=== PATIENT | male | born 1995 | race Caucasian/White ===

== ENCOUNTER 2016-10-07 19:08 | Emergency (ER) | payer BC ==
[2016-10-07 19:29] VITALS: BP 147/74
--- NOTE | 2016-10-07 19:49 | UC ---
Cardiac HPI - HPI Summary HPI Summary: The patient comes in today for: 1. Chest pain, cough, dizziness (imbalaned, feeling drunk, stumbly). Onset: 11 days. Palliative/provocative: nothing makes his chest pain, cough, or dizziness better or worse. Quality: Burning. Region: Center, retro-sternal, with radiation of the pain to his back. Severity: 7/10 Associated symptoms: Cough production: dark yellow. Rhinitis: None. Fevers: None. Dsypnea: Present. Hemoptysis: None. Asthma history: None Nausea: NOne. CAD risk factors: Age: None, HTN: (-), DM: (-), Smoker: (-), FmHx: (-), Previous heart disease: (-) Previous treatment: MUcinex Wheezing: None. Inhalers: He has one, but has not been using it (Proair). * - History of Current Complaint Chief Complaint: UCChestPain Stated Complaint: CHEST TIGHTNESS,DIZZY SPELLS Time Seen by Provider: 10/07/16 19:43 Hx Obtained From: Patient - Allergy/Home Medications Allergies/Adverse Reactions: Allergies Allergy/AdvReac Type Severity Reaction Status Date / Time Cefadroxil [From Duricef] Allergy Severe Rash Verified 10/07/16 19:29 PMH/Surg Hx/FS Hx/Imm Hx Previously Healthy: Yes Endocrine History Of: Denies: Diabetes, Thyroid Disease, Hyperthyroidism, Hypothyroidism, Dyslipidemia Cardiovascular History Of: Denies: Cardiac Disorders, Hypertension, Pacemaker/ICD, Myocardial Infarction , Congestive Heart Failure, Atrial Fibrillation, Deep Vein Thrombosis, Bleeding Disorders Respiratory History Of: Denies: COPD, Asthma, Bronchitis, Pneumonia, Pulmonary Embolism GI/ History Of: Denies: Gastroesophageal Reflux, Ulcer, Gastrointestinal Bleed, Gall Bladder Disease, Kidney Stones, Diverticulitis, Renal Disease, Urosepsis Neurological History Of: Denies: TIA, CVA, Dementia, Seizures, Migraine Psychological History Of: Denies: Anxiety, Depression, Bipolar Disorder, Schizophrenia, Post Traumatic Stress Disorder Cancer History Of: Denies: Lung Cancer, Colorectal Cancer, Breast Cancer, Prostate Cancer, Cervical Cancer Other History Of: Negative For: HIV, Hepatitis B, Hepatitis C, Anticoagulant Therapy - Surgical History Surgical History: None - Family History Known Family History: Positive: Hypertension Negative: Diabetes - Social History Occupation: Employed Full-time Alcohol Use: Weekly Substance Use Type: None Smoking Status (MU): Heavy Every Day Tobacco Smoker Type: Cigarettes Amount Used/How Often: 1 ppd Review of Systems Constitutional: Negative Skin: Negative Eyes: Negative ENT: Negative Respiratory: Cough Cardiovascular: Chest Pain Gastrointestinal: Negative Genitourinary: Negative All Other Systems Reviewed And Are Negative: Yes Physical Exam Triage Information Reviewed: Yes Appearance: Well-Appearing, No Pain Distress, Well-Nourished Vital Signs: Initial Vital Signs Temp 99.2 F 10/07/16 19:25 Pulse 88 10/07/16 19:25 Resp 18 10/07/16 19:25 BP 147/74 10/07/16 19:25 Pulse Ox 98 10/07/16 19:25 Vital Signs Reviewed: Yes Eyes: Positive: Conjunctiva Clear. Negative: Discharge ENT: Positive: Hearing grossly normal. Negative: Pharyngeal erythema, Nasal congestion, Nasal drainage, TM bulging, TM dull, TM red, Tonsillar swelling, Tonsillar exudate Dental: Negative: Gross Decay/Caries @, Dental Fracture @ Neck: Positive: Supple, Nontender, No Lymphadenopathy. Negative: Nuchal Rigidity Respiratory: Positive: Chest non-tender, Lungs clear, No respiratory distress, No accessory muscle use, Rhonchi. Negative: Crackles, Wheezing Cardiovascular: Positive: RRR, No Murmur Abdomen Description: Positive: Nontender, No Organomegaly, Soft. Negative: Distended, Guarding Musculoskeletal: Positive: Strength Intact, ROM Intact, No Edema Neurological: Positive: Alert, Muscle Tone Normal Psychological: Positive: Age Appropriate Behavior, Consolable Skin: Negative: rashes, breakdown Diagnostics - Laboratory Diagnostic Studies Completed/Ordered: EKG: Rate: 80. Rhythm: sinus. Ectopy: None. Acute changes: None. - Assessment/Plan Course Of Treatment: Patient was told that his symptoms appear to be related to an upper respiratory infectio. However, there are many different causes for chest pain--some benign and some life-threatening. The life-threatening causes of chest pain can present with minimal symptoms, atypical symptoms or be present with no symptoms. Because we don't have the typical tools to differentiate the life-threatening causes from the benign ones my formal recommendation has to be to go to the ER. - Clinical Impression Provider Diagnoses: chest pain. Upper respiratory infection. Discharge - Discharge Plan Condition: Stable Disposition: AGAINST MEDICAL ADVICE Patient Education Materials: Upper Respiratory Infection (ED), Acute Bronchitis (ED), Bronchospasm (ED) Referrals: Non Staff,Doctor [Primary Care Provider] - 1 Week (IF you are not going to the ER for evaluation of your chest pain, please at least reconsider if you get worse. For your upper respiratory infection, please see your primary care provider in a week. See your primary care provider as soon as you can for your chest pain.)
== END 2016-10-07 20:14 | disposition left against medical advice (07) ==
LOC: UCEAST 19:08
DX: R07.89 Other chest pain (principal); J06.9 Acute upper respiratory infection, unspecified; Z88.1 Allergy status to other antibiotic agents; F17.210 Nicotine dependence, cigarettes, uncomplicated
CPT/HCPCS: 93005; 99202; G0463

== ENCOUNTER 2017-11-22 09:18 | Emergency (ER) | payer SELFPAY ==
[2017-11-22 09:32] VITALS: BP 150/79
[2017-11-22] MEDS ORDERED: HYDROcodone/ACETAMIN 5-325 MG* 1 TAB PO ONE (09:35)
--- NOTE | 2017-11-22 09:57 | RAD ---
HISTORY: Right elbow pain, injury COMPARISONS: None VIEWS: 4, Frontal, lateral, and oblique views of the right elbow FINDINGS: BONE DENSITY: Normal. BONES: There is no displaced fracture. JOINTS: There is no arthropathy. There is no posterior supracondylar fat pad to suggest a joint effusion. ALIGNMENT: There is no dislocation. SOFT TISSUES: Unremarkable. OTHER FINDINGS: None. IMPRESSION: NO ACUTE OSSEOUS INJURY. IF SYMPTOMS PERSIST, RECOMMEND REPEAT IMAGING.
--- NOTE | 2017-11-22 10:35 | UC ---
Magdalena Bean Gabriel, scribed for Gaurav Mcdonnell MD on 11/22/17 at 0940 . Upper Extremity HPI - HPI Summary HPI Summary: This patient is a 22 year old M [place] [facility] his sister with a chief complaint of right elbow pain that began yesterday. The pt was playing basketball and went to swat the ball when he heard a pop in his elbow. The patient rates the pain 4/10 in severity. Symptoms aggravated by movement. Patient reports swelling. Patient denies shoulder pain. Pt states he cannot bend his left elbow. - History of Current Complaint Stated Complaint: ELBOW INJURY Time Seen by Provider: 11/22/17 09:29 Hx Obtained From: Patient Onset/Duration: Lasting Days - 1, Still Present Severity Initially: Moderate Severity Currently: Moderate Pain Intensity: 4 Pain Scale Used: 0-10 Numeric Location Of Pain: Is Discrete @ - R elbow Aggravating Factor(s): Movement Associated Signs And Symptoms: Positive: Swelling, Other - pain - Allergies/Home Medications Allergies/Adverse Reactions: Allergies Allergy/AdvReac Type Severity Reaction Status Date / Time cefadroxil [From Durice] Allergy Rash Verified 11/22/17 09:33 Home Medications: Home Medications Acetaminophen TAB* [Tylenol TAB*] 650 mg PO Q4H PRN 11/22/17 [History Confirmed 11/22/17] PMH/Surg Hx/FS Hx/Imm Hx Previously Healthy: Yes Other History Of: Negative For: HIV, Hepatitis B, Hepatitis C, Anticoagulant Therapy - Surgical History Surgical History: None - Family History Known Family History: Positive: Hypertension Negative: Diabetes, Renal Disease, Respiratory Disease, Seizure Disorder, Blood Disorder - Social History Occupation: Employed Full-time Lives: With Family Alcohol Use: Occasionally Substance Use Type: None Smoking Status (MU): Heavy Every Day Tobacco Smoker Type: Cigarettes Amount Used/How Often: 1 ppd Review of Systems Musculoskeletal: Edema, Other: - right elbow pain Neurological: Negative - numbness All Other Systems Reviewed And Are Negative: Yes Physical Exam - Summary Physical Exam Summary: General: well-appearing, no pain distress Skin: warm, color reflects adequate perfusion, dry Head: normal Eyes: EOMI, JERICA ENT: normal Neck: supple, nontender Respiratory: CTA, breath sounds present Cardiovascular: RRR Abdomen: soft, nontender Bowel: present Musculoskeletal: right elbow is TTP, there is mild swelling, he keeps the elbow extended with the wrist pronated. There is good pulses, capillary refill, and sensation. Neurological: sensory/motor intact, A&O x3 Psychological: affect/mood appropriate Triage Information Reviewed: Yes Vital Signs: Initial Vital Signs Temp 98.3 F 11/22/17 09:27 Pulse 81 11/22/17 09:27 Resp 16 11/22/17 09:27 BP 150/79 11/22/17 09:27 Pulse Ox 100 11/22/17 09:27 Vital Signs Reviewed: Yes Diagnostics - Radiology Elbow Xray Radiology Interpretation Completed By: Radiologist - NO ACUTE OSSEOUS INJURY. IF SYMPTOMS PERSIST, RECOMMEND REPEAT IMAGING. Dr. Mcdonnell has reviewed this report. Upper Extremity Course/Dx - Course Course Of Treatment: PATIENT SUPINATED AND FLEXED THR RT ELBOW FOR X-RAY AND FELT A POP BUT, DID NOT HAVE A DECREASE IN PAIN OR IMPROVEMENT IN ROM. WILL SLING, RX NORCO, TAKE IBUPROFEN, ICE AND F/U ORTHO. BP noted and advised to follow up with PCP. - Differential Dx/Diagnosis Provider Diagnoses: right elbow pain/strain. Elevated blood pressure without a previous diagnoses of hypertension Discharge - Sign-Out/Discharge Documenting (check all that apply): Discharge/Admit/Transfer - Discharge Plan Condition: Stable Disposition: HOME Prescriptions: HYDROcodone/ACETAMIN 5-325 MG* [Brigantine 5-325 TAB*] 1 tab PO Q4H PRN #30 tab MDD 6 PRN Reason: Pain Patient Education Materials: Elbow Sprain (ED), Swollen Joint (ED) Referrals: [facility] [Outside] [facility] [Outside] Karina Head MD [Medical Doctor] - Additional Instructions: Your blood pressure was elevated during today's visit, 150/79. Please follow up with your primary care provider in 1-2 weeks. - Billing Disposition and Condition Condition: STABLE Disposition: HOME The documentation as recorded by the Magdalena ta Gabriel accurately reflects the service I personally performed and the decisions made by me, Gaurav Mcdonnell MD.
== END 2017-11-22 10:39 | disposition home or self-care (01) ==
LOC: UCEAST 09:18
DX: S56.911A Strain of unspecified muscles, fascia and tendons at forearm level, right arm, initial encounter (principal); X58.XXXA Exposure to other specified factors, initial encounter; Y93.67 Activity, basketball; Y92.310 Basketball court as the place of occurrence of the external cause; R03.0 Elevated blood-pressure reading, without diagnosis of hypertension; Z88.1 Allergy status to other antibiotic agents; F17.210 Nicotine dependence, cigarettes, uncomplicated
CPT/HCPCS: 99213; G0463

== ENCOUNTER 2018-04-07 21:28 | Emergency (ER) | payer SELFPAY ==
--- NOTE | 2018-04-07 21:38 | UC ---
Bite Injury/Animal HPI - HPI Summary HPI Summary: Patient [place] today. Patient states he had multiple ticks on him. Patient was able deformity of mouth. Patient with 2 ticks on his right flank that are "buried in" No pain, no redness. Patient states his checked his body and his ability to ticks. Tetanus is up-to-date. Patient is not is not immunocompromised. Patient states 2 friends of have Lyme's little concerned about je. Patient also states he's got some warts on his hands. Patient wonders if we can do something about him. Patient states in the past he cuts them off. Patient's medications reviewed this visit - History of Current Complaint Stated Complaint: TICKS Time Seen by Provider: 04/07/18 21:33 Hx Obtained From: Patient Severity Currently: None Pain Scale Used: 0-10 Numeric - Allergies/Home Medications Allergies/Adverse Reactions: Allergies Allergy/AdvReac Type Severity Reaction Status Date / Time cefadroxil [From [facility] [place]] Allergy Rash Verified 04/07/18 21:43 Home Medications: Home Medications NK [No Home Medications Reported] 04/07/18 [History Confirmed 04/07/18] PMH/Surg Hx/FS Hx/Imm Hx Previously Healthy: Yes Other History Of: Negative For: HIV, Hepatitis B, Hepatitis C, Anticoagulant Therapy - Surgical History Surgical History: None - Family History Known Family History: Positive: Hypertension Negative: Diabetes, Renal Disease, Respiratory Disease, Seizure Disorder, Blood Disorder - Social History Occupation: Employed Full-time Lives: With Family Alcohol Use: Occasionally Substance Use Type: None Smoking Status (MU): Heavy Every Day Tobacco Smoker Type: Cigarettes Amount Used/How Often: 1 ppd Review of Systems Constitutional: Negative Skin: Other - warts on his hand 2 ticks on right flank All Other Systems Reviewed And Are Negative: Yes Physical Exam - Summary Physical Exam Summary: Vital Signs Reviewed: Yes A+Ox3, no distress Eyes: Conjunctiva Clear ENT: Hearing grossly normal neck: supple Respiratory: Positive: No respiratory distress, No accessory muscle use Cardiovascular: skin color reflect adequate perfusion Musculoskeletal Exam: BARRAZA x 4 without difficulty Neurological: Positive: Alert, ambulatory without difficulty Psychological: Positive: Normal Response To Family Skin: Positive: no rash, no ecchymosis right flank: pt with 2 live, non engorged using tick twister removed 2 ticks - intact, alive pt tolerated well On hands, pt with small, fleshy appearing warts to palmar aspect non tender, no reddness Triage Information Reviewed: Yes Bite Injury Course/Dx - Course Course Of Treatment: Pt presents with 2 ticks on his skin - easily removed intact. after discussion, pt requesting prophylaxis - doxy given. on hands, b/ l pt with warts, no infected appearing. will refer to derm. pt given tick twister and taught use - Differential Dx/Diagnosis Provider Diagnoses: tick bite. warts Discharge - Sign-Out/Discharge Documenting (check all that apply): Patient Departure All imaging exams completed and their final reports reviewed: No Studies - Discharge Plan Condition: Stable Disposition: HOME Patient Education Materials: Lyme Disease (ED), Tick Bite (ED), Common Wart (ED ) Referrals: Katiana Esquivel MD [Medical Doctor] - Additional Instructions: - You have been give the tool to remove ticks. Remeber to gentle rotate tool counter clockwise to remove - do not pull - you were given the one time prophylaxis treatment for lyme disease You have been given a referral to a material planner for your hand lesions. It is recommend you contact her office to schedule a follow-up appointment. - Billing Disposition and Condition Condition: STABLE Disposition: Home
[2018-04-07 21:41] VITALS: BP 132/85
[2018-04-07] MEDS ORDERED: DOXYcycline CAP(*) 100 MG PO ONE (21:49)
== END 2018-04-07 22:19 | disposition home or self-care (01) ==
LOC: UCEAST 21:28
DX: S30.861A Insect bite (nonvenomous) of abdominal wall, initial encounter (principal); W57.XXXA Bitten or stung by nonvenomous insect and other nonvenomous arthropods, initial encounter; Y92.9 Unspecified place or not applicable; B07.9 Viral wart, unspecified; Z88.1 Allergy status to other antibiotic agents; F17.210 Nicotine dependence, cigarettes, uncomplicated
CPT/HCPCS: 99212; A9270-GY; G0463

== ENCOUNTER 2018-09-25 09:30 | Emergency (ER) | payer BC, OTHER ==
[2018-09-25 09:48] VITALS: BP 131/80
--- NOTE | 2018-09-25 09:55 | UC ---
Skin Complaint HPI - HPI Summary HPI Summary: Patient was in the [facility] and home yesterday afternoon and today he found a tick embedded in his left nipple. He was able to remove part of it but the head of the tick is still retained. He made several attempts last evening using a needle and a tick twister without success. - History of Current Complaint Chief Complaint: [facility] Time Seen by Provider: 09/25/18 09:54 Stated Complaint: TICK BITE CHEST Hx Obtained From: Patient Onset/Duration: Other - Patient discovered the tick last evening. Skin Exposure Onset/Duration: Days Ago - Ascend 24 hours ago Onset Severity: Mild Current Severity: Mild Pain Intensity: 6 Location: Other - Left nipple Aggravating Factor(s): Nothing Alleviating Factor(s): Nothing Associated Signs & Symptoms: Positive: Negative Related History: Insect Bite/Sting - Allergy/Home Medications Allergies/Adverse Reactions: Allergies Allergy/AdvReac Type Severity Reaction Status Date / Time cefadroxil [From [facility] [place]] Allergy Rash Verified 09/25/18 09:48 PMH/Surg Hx/FS Hx/Imm Hx Previously Healthy: Yes Other History Of: Negative For: HIV, Hepatitis B, Hepatitis C, Anticoagulant Therapy - Surgical History Surgical History: None - Family History Known Family History: Positive: Hypertension Negative: Diabetes, Renal Disease, Respiratory Disease, Seizure Disorder, Blood Disorder - Social History Alcohol Use: Occasionally Substance Use Type: None Smoking Status (MU): Heavy Every Day Tobacco Smoker Type: Cigarettes Amount Used/How Often: 1 ppd Review of Systems All Other Systems Reviewed And Are Negative: Yes Skin: Positive: Other - Head of a tick is still embedded in his left nipple. Is Patient Immunocompromised?: No Physical Exam Triage Information Reviewed: Yes Appearance: Well-Appearing, No Pain Distress, Well-Nourished Vital Signs: Initial Vital Signs Temp 98 F 09/25/18 09:43 Pulse 100 09/25/18 09:43 Resp 20 09/25/18 09:43 BP 131/80 09/25/18 09:43 Pulse Ox 98 09/25/18 09:43 Vital Signs Reviewed: Yes Skin: Positive: Other - Head of the tick is still embedded in his left nipple. Erythema, bruising, swelling is noted. Course/Dx - Course Course Of Treatment: I was able to remove the head of the tick from the left nipple without difficulty. The patient is to watch for any kind of infection which was reviewed with him. He opted to not take any prophylactic doxycycline. We reviewed the symptoms of Lyme disease and he is to follow-up with his primary care provider if he develops any fever, chills, rashes body aches over the next 2-4 weeks. Patient is agreeable to this plan of action. - Diagnoses Provider Diagnosis: Tick bite of chest wall Discharge - Sign-Out/Discharge Documenting (check all that apply): Patient Departure All imaging exams completed and their final reports reviewed: No Studies - Discharge Plan Condition: Good Disposition: HOME Patient Education Materials: Lyme Disease (ED), Tick Bite (ED) Referrals: [facility] [Outside] No Primary Care Phys,NOPCP [Primary Care Provider] - Additional Instructions: O up with your primary care provider if you develop any rash, fever or chills or achy joints over the next 2-4 weeks. - Billing Disposition and Condition Condition: GOOD Disposition: Home - Attestation Statements Provider Attestation: I was available for consult. This patient was seen by the [facility]. The patient was not presented to , seen by or examined by -Josiah Salmon MD
== END 2018-09-25 10:22 | disposition home or self-care (01) ==
LOC: UCEAST 09:30
DX: S20.162A Insect bite (nonvenomous) of breast, left breast, initial encounter (principal); W57.XXXA Bitten or stung by nonvenomous insect and other nonvenomous arthropods, initial encounter; Z88.3 Allergy status to other anti-infective agents
CPT/HCPCS: 99211; G0463

== ENCOUNTER 2019-05-27 19:35 | Emergency (ER) | payer BC, OTHER ==
[2019-05-27 19:47] VITALS: BP 172/85
--- NOTE | 2019-05-27 20:06 | UC ---
Skin Complaint HPI - HPI Summary HPI Summary: Removed engorged tick a week ago and started developing body aches yesterday. He has taken one tab of doxy from his mother and has an extra one at home. He is a fuentes. He does not use preventive measures for tick bites as he states "they don't bother me". Has had more than 40 tick bites in the past year. - History of Current Complaint Chief Complaint: UCGeneralIllness Time Seen by Provider: 05/27/19 19:53 Stated Complaint: BODYACHE Hx Obtained From: Patient Pain Intensity: 8 Pain Scale Used: 0-10 Numeric Aggravating Factor(s): Nothing Alleviating Factor(s): Nothing - Allergy/Home Medications Allergies/Adverse Reactions: Allergies Allergy/AdvReac Type Severity Reaction Status Date / Time cefadroxil [From [facility] [place]] Allergy Rash Verified 05/27/19 19:43 Home Medications: Home Medications DOXYcycline CAP(*) [DOXYcycline 100MG CAP(*)] 1 tab PO ONCE 05/27/19 [History Confirmed 05/27/19] guaiFENesin [Mucinex] 1 tab PO TID PRN 05/27/19 [History Confirmed 05/27/19] PMH/Surg Hx/FS Hx/Imm Hx Previously Healthy: Yes Other History Of: Negative For: HIV, Hepatitis B, Hepatitis C, Anticoagulant Therapy - Surgical History Surgical History: None - Family History Known Family History: Positive: Hypertension Negative: Diabetes, Renal Disease, Respiratory Disease, Seizure Disorder, Blood Disorder - Social History Alcohol Use: Rare Substance Use Type: None Smoking Status (MU): Heavy Every Day Tobacco Smoker Type: Cigarettes Amount Used/How Often: 1 ppd Household Exposure Type: Cigarettes Review of Systems All Other Systems Reviewed And Are Negative: Yes Constitutional: Positive: Chills, Fatigue. Negative: Fever Skin: Negative: Rash Musculoskeletal: Positive: Myalgia Neurological: Positive: Headache Physical Exam Triage Information Reviewed: Yes Appearance: Well-Appearing Vital Signs: Initial Vital Signs Temp 99.9 F 05/27/19 19:40 Pulse 95 05/27/19 19:40 Resp 18 05/27/19 19:40 BP 172/85 05/27/19 19:40 Pulse Ox 97 05/27/19 19:40 Vital Signs Reviewed: Yes Eyes: Positive: Conjunctiva Clear Respiratory: Positive: No respiratory distress Neurological: Positive: Alert Skin: Positive: Rashes Course/Dx - Course Course Of Treatment: Myalgias after a tick bite a week ago. No rash on exam. Will r/o lyme and tx preemptively vitals good.. - Differential Diagnoses - Skin Complaint Differential Diagnoses: Tick Born Illness, Other - Diagnoses Provider Diagnosis: Tick bite Discharge ED - Sign-Out/Discharge Documenting (check all that apply): Patient Departure All imaging exams completed and their final reports reviewed: No Studies - Discharge Plan Condition: Good Disposition: HOME Prescriptions: DOXYcycline CAP(*) [DOXYcycline 100MG CAP(*)] 100 mg PO BID 13 Days #26 cap Patient Education Materials: Lyme Disease (ED) Referrals: No Primary Care Phys,NOPCP [Primary Care Provider] - Additional Instructions: PLEASE THINK ABOUT TICK PREVETION. YOUR BLOOD PRESSURE IS ELEVATED TODAY, PLEASE CONSIDER SEEING YOUR PRIMARY CARE AND DISCUSSING THIS. - Billing Disposition and Condition Condition: GOOD Disposition: Home
== END 2019-05-27 20:31 | disposition home or self-care (01) ==
LOC: UCEAST 19:35
DX: T14.8XXA Other injury of unspecified body region, initial encounter (principal); F17.210 Nicotine dependence, cigarettes, uncomplicated; R53.83 Other fatigue; M79.10 Myalgia, unspecified site; Z88.1 Allergy status to other antibiotic agents; W57.XXXA Bitten or stung by nonvenomous insect and other nonvenomous arthropods, initial encounter; Y92.9 Unspecified place or not applicable
CPT/HCPCS: 36415; 86618; 99212; G0463

== ENCOUNTER 2019-08-12 20:36 | Emergency (ER) | payer BC, OTHER ==
[2019-08-12 20:54] VITALS: BP 153/87
[2019-08-12 21:31] LABS: Influenza B Molecular POSITIVE (Negative)
[2019-08-12] MEDS ORDERED: Oseltamivir CAP* 75 MG CAP PO ONE ×2 (21:51→21:52)
[2019-08-12] MEDS ORDERED: guaiFENesin/CODIENE 100mg/10mg 5 ML UDC PO ONE (21:55)
--- NOTE | 2019-08-12 22:02 | UC ---
FLU HPI - HPI Summary HPI Summary: ONSET THIS MORNING OF COUGH, SUBJECTIVE FEVER, CHILLS, HEADACHE, BODY ACHES, FATIGUE. NO FLU SHOT THIS SEASON. - History of Current Complaint Chief Complaint: UCRespiratory Stated Complaint: BODYACHES,COUGH Time Seen by Provider: 08/12/19 21:32 Hx Obtained From: Patient Onset/Duration: Gradual Onset, Lasting Hours, Still Present Severity Currently: Moderate Severity Initially: Moderate Pain Intensity: 7 Pain Scale Used: 0-10 Numeric Associated Signs & Symptoms: Positive: Fever, Myalgia, Cough, Nasal Congestion, Headache - Allergy/Home Medications Allergies/Adverse Reactions: Allergies Allergy/AdvReac Type Severity Reaction Status Date / Time [place]ef[place] [facility] [place]ergy Rash Verified 08/12/19 20:51 PMH/Surg Hx/FS Hx/Imm Hx Previously Healthy: Yes Other History Of: Negative For: HIV, Hepatitis B, Hepatitis C, Anticoagulant Therapy - Surgical History Surgical History: None - Family History Known Family History: Positive: Hypertension Negative: Diabetes, Renal Disease, Respiratory Disease, Seizure Disorder, Blood Disorder - Social History Alcohol Use: Rare Substance Use Type: None Smoking Status (MU): Heavy Every Day Tobacco Smoker Type: Cigarettes Amount Used/How Often: 1 ppd Household Exposure Type: Cigarettes Review of Systems All Other Systems Reviewed And Are Negative: Yes Constitutional: Positive: Fever, Chills, Fatigue ENT: Positive: Nasal Discharge. Negative: Sore Throat Respiratory: Positive: Cough Cardiovascular: Positive: Negative Gastrointestinal: Positive: Negative Musculoskeletal: Positive: Myalgia Neurological/Mental Status: Positive: Headache Physical Exam Triage Information Reviewed: Yes Appearance: No Pain Distress, Well-Nourished, Ill-Appearing - FATIGUED Vital Signs: Initial Vital Signs Temp 101.6 F 08/12/19 20:49 Pulse 116 08/12/19 20:49 Resp 24 08/12/19 20:49 BP 153/87 08/12/19 20:49 Pulse Ox 97 08/12/19 20:49 Laboratory Tests 08/12/19 21:27 Influenza B (Rapid) Positive H Vital Signs Reviewed: Yes Eyes: Positive: Conjunctiva Clear ENT: Positive: Hearing grossly normal, Pharyngeal erythema, TMs normal. Negative: Tonsillar swelling, Tonsillar exudate Neck: Positive: Supple, Nontender, No Lymphadenopathy Respiratory Exam: Normal Cardiovascular: Positive: Tachycardia Abdomen Description: Positive: Nontender, Soft Musculoskeletal: Positive: No Edema Neurological: Positive: Alert Psychological: Positive: Age Appropriate Behavior Skin: Negative: Rashes Flu Course/Dx - Course Course Of Treatment: SWAB POSITIVE FOR INFLUENZA B. TAMIFLU TWICE DAILY FOR 5 DAYS. REST, HYDRATE, OTC MEDS NEEDED. FOLLOW-UP IF NOT IMPROVING EXPECTED. PATIENT REQUESTING COUGH MEDICINE HE IS UNABLE TO SLEEP DUE TO HARSH COUGH. CODEINE/ GUAIFENESIN PRESCRIBED. ADVISED TO KEEP OUT OF REACH OF CHILDREN AND PETS AND NOT TO DRIVE OR OPERATE HEAVY MACHINERY WHILE ON THIS POSSIBLY SEDATING MEDICATION. - Differential Dx/Diagnosis Provider Diagnosis: Influenza B Discharge ED - Sign-Out/Discharge Documenting (check all that apply): Patient Departure All imaging exams completed and their final reports reviewed: No Studies - Discharge Plan Condition: Stable Disposition: HOME Prescriptions: Codeine Phosphate/Guaifenesin [Codeine-Guaifen 10-100 mg/5 ml] 5 - 10 ml PO Q6H PRN #150 ml MDD 40ML PRN Reason: Cough Oseltamivir CAP* [Tamiflu CAP*] 75 mg PO BID #8 cap Patient Education Materials: Influenza (ED) Referrals: [facility] [Outside] - If Needed Additional Instructions: SWAB POSITIVE FOR INFLUENZA B. TAMIFLU TWICE DAILY FOR 5 DAYS. OTC MEDS NEEDED FOR FEVER, BODY ACHES. STAY WELL HYDRATED AND RESTED. SEEK FOLLOW-UP IF YOU ARE NOT IMPROVING EXPECTED. CODEINE/GUAIFENESIN NEEDED FOR COUGH. THIS MEDICATION CAN BE SEDATING. DO NOT DRIVE OR OPERATE HEAVY MACHINERY WHILE TAKING THIS MEDICATION. KEEP OUT OF REACH OF CHILDREN AND PETS. IBUPROFEN MAX DOSE: 600MG (3 TABS) EVERY 6 HRS OR 800MG (4 TABS) EVERY 8 HRS TYLENOL MAX DOSE: 1000MG (2 EXTRA STRENGTH TABS) EVERY 8 HRS OR 650MG (2 REGULAR TABS) EVERY 6 HRS - Billing Disposition and Condition Condition: STABLE Disposition: Home
== END 2019-08-12 22:12 | disposition home or self-care (01) ==
LOC: UCEAST 20:36
DX: J10.1 Influenza due to other identified influenza virus with other respiratory manifestations (principal); F17.210 Nicotine dependence, cigarettes, uncomplicated; Z88.1 Allergy status to other antibiotic agents
CPT/HCPCS: 99213; A9270-GY; G0463